=== PATIENT | male | born 1975 | race Caucasian/White ===

== ENCOUNTER 2020-02-04 16:40 | Emergency (ER) | payer MEDICAID ==
[~2020-02-04] VITALS: Ht 182.9 cm; Wt 88.5 kg
[2020-02-04 17:06] VITALS: Ht 182.9 cm; Wt 88.5 kg
[2020-02-04 18:55] VITALS: BP 102/68
== END 2020-02-04 18:55 | disposition home or self-care (01) ==
LOC: ED 16:40
DX: F20.9 Schizophrenia, unspecified (principal); Z91.14 Patient's other noncompliance with medication regimen
CPT/HCPCS: J1885; J8597; Q0162